=== PATIENT | male | born 1945 | race Caucasian/White ===

== ENCOUNTER → 2023-06-29 09:51 | Outpatient (CLI) | payer MEDICARE, SELFPAY ==
--- NOTE | 2023-06-29 | DI.NM.S_ITS ---
PROCEDURE: NM PARATHYROID SPECT RADIOPHARMACEUTICAL: 27.4 mCi Tc-99m sestamibi IV. INDICATIONS: Primary hyperparathyroidism TECHNIQUE: After intravenous administration of Tc-99m sestamibi, anterior planar images of the neck and mediastinum were obtained at approximately 10 minutes and 2-3 hours. SPECT images were acquired after the 10 minute planar images. COMPARISON: None. FINDINGS: On the early images, the thyroid gland is bilobed and has normal size and morphology. There is no focal increased activity in the thyroid bed. The delayed images show preferential tracer retention in the thyroid bed to suggest parathyroid adenoma. The SPECT images demonstrate no abnormal activity in the neck. IMPRESSION: Retained delayed tracer in the left thyroid. Parathyroid cannot be excluded. Recommend correlation with ultrasound as well as PI-RADS thyroid CT exam. Dictated by: Arpita Waters M.D. on 06/29/2023 at 22:26 Approved by: Arpita Waters M.D. on 06/29/2023 at 22:28
== END ==
PROVIDERS: PCP Family Medicine; Referring Provider Family Medicine; Visit Provider Family Medicine
DX: E21.0 Primary hyperparathyroidism (principal)
CPT/HCPCS: 78071; A9500

== ENCOUNTER → 2023-08-04 08:35 | Outpatient (CLI) | payer MEDICARE, SELFPAY ==
--- NOTE | 2023-08-04 | DI.CT.S_ITS ---
PROCEDURE: CT SOFT TISSUE NECK WO/W CON INDICATIONS: Primary hyperparathyroidism TECHNIQUE: Before and after the administration of intravenous contrast, 2.0 mm axial sections acquired through the neck and down to the jim. Additional 2.0 mm coronal and sagittal reformats were generated of the contrast enhanced images. For radiation dose reduction, the following was used: automated exposure control. COMPARISON: [place], [place], CT PARATHYROID SPECT, 06/29/2023, 10:33. FINDINGS: Image quality: Excellent. Parathyroid: Posterior to the superior pole of the left thyroid, there is a soft tissue mass that measures 2.4 x 1.6 cm in greatest axial dimension, with a craniocaudal extent of 2.6 cm. On precontrast imaging, this is clearly hypodense to the adjacent normal thyroid tissue. On postcontrast imaging, there is moderate enhancement, slightly less than the adjacent thyroid gland. On the delayed images, there is washout of contrast seen. No additional parathyroid abnormalities are seen. Thyroid: No significant abnormality of the thyroid gland can be seen. Lymph nodes: No enlarged lymph nodes seen throughout the neck. Vessels: Visualized vasculature appears patent. Neck spaces: The oropharynx, nasopharynx, and pharynx demonstrate no mucosal lesions. The vocal cords, false vocal cords, pyriform sinuses, epiglottis, vallecula, and tongue base all appear normal. Extramucosal spaces appear unremarkable. Glands: The parotid and submandibular glands appear normal. Miscellaneous: Visualized lungs appear clear. Superficial soft tissues appear normal. Bones: No suspicious bony lesions. Visualized sinuses and mastoids appear unremarkable. At least moderate cervical spine degenerative change can be seen. 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 No additional masses are detected. No suspicious lymph nodes are seen. Additional findings: At least moderate cervical spine degenerative change Dictated by: José Luis Vera M.D. on 08/04/2023 at 15:38 Approved by: José Luis Vera M.D. on 08/04/2023 at 15:41
[2023-08-04 09:02] LABS: Estimated Glomerular Filt Rate > 60 mL/min (>60)
== END ==
LOC: CT 08:36
PROVIDERS: Specialist; PCP Family Medicine; Referring Provider Family Medicine; Visit Provider Family Medicine
DX: M47.812 Spondylosis without myelopathy or radiculopathy, cervical region (principal); E83.52 Hypercalcemia; D35.1 Benign neoplasm of parathyroid gland; R22.1 Localized swelling, mass and lump, neck
CPT/HCPCS: 36415; 70492; 82565; Q9967

== ENCOUNTER → 2023-09-16 08:35 | Outpatient (CLI) | payer MEDICARE, SELFPAY ==
[2023-09-16 09:19] LABS: BUN Creatinine Ratio 23.3 (6-22); Blood Urea Nitrogen 24 mg/dL (9-20); Calcium 11.3 mg/dL (8.4-10.2); Carbon Dioxide 27 mmol/L (22-32); Chloride 106 mmol/L (98-107); Estimated Glomerular Filt Rate > 60 mL/min (>60); Glucose 102 mg/dL (80-110); HEMOLYSIS < 15 (0-50); Potassium 5.3 mmol/L (3.4-5.1); Sodium 140 mmol/L (137-145)
[2023-09-20 06:36] LABS: Calcium 11.3 mg/dL (8.6-10.2); Parathyroid Hormone, Intact 138 pg/mL (15-65)
== END ==
PROVIDERS: PCP Family Medicine; Referring Provider Surgery; Visit Provider Surgery
DX: E83.52 Hypercalcemia (principal); D35.1 Benign neoplasm of parathyroid gland
CPT/HCPCS: 36415; 80048; 82310; 83970

== ENCOUNTER 2023-09-23 23:31 | Observation (INO) | payer MEDICARE, SELFPAY ==
[2023-09-21 13:35] VITALS: BMI 25.4
--- NOTE | 2023-09-22 19:40 | PM.PREOP ---
Pre-operative Note Interval Note History & Physical reviewed/Exam performed by Physician: Yes Changes to H&P: No
[2023-09-23] VITALS (22 sets, daily range): BP systolic 92–146; BP diastolic 52–102; PULSE 74–144; RESP 12–135; TEMP 36.4–37; O2SAT 94–99; BMI 25.4
--- NOTE | 2023-09-23 | PATH_ITS ---
[facility] Accession Number: [id number] No. of containers..02 Tissue . 01 Material submitted: . PART A: parathyroid gland - PARATHYROID PART B: thyroid gland - PARTIAL THYROID . 01 Diagnosis: A. PARATHYROID: Adipose tissue and skeletal muscle. Parathyroid tissue not present. . B. PARTIAL THYROID: Enlarged/hypercellular parathyroid lesion (see comment). Final diagnosis pending outside consultation with Dr. Archie Liao, ([facility], [place], [place]). MRV 09/29/2023 1837 Local . 01 Comment: The parathyroid tissue identified in specimen B is circumscribed and partially encapsulated, and composed of a mixture of sheets, trabeculae, and microfollicles, predominanted by chief cells with smaller nodules of oxyphil cells. The lesiona is adherent to a scant amount of adjacent thyroid tissue. Dense, hyalinized fibrous bands are present throughout, as well as hemosiderin pigment and cholesterol clefts. The lesion does not appear transected, but extends to inked margin. Invasion into soft tissue or thyroid gland is not present. Lymphovascular invasion is not identified. Necrosis or increased mitotic activity are not seen. A limited panel of immunostains is obtained on block B2, with the controls stained appropriately. The tumor shows uniform expression with GATA3 and is negative with PAX8, confirming parathyroid origin (and excluding thyroid origin). . This parathyroid lesion is compatible with an adenoma; however, requires correlation with the remainder of the parathyroid glands. Additionally, this presumed adenoma shows some findings which can be identified in an atypical parathyroid tumor, namely the fibrous bands and adherence to thyroid. Definitive features of a parathyroid carcinoma are not seen. At this juncture, we are electing to send this case for consultation to Dr. Archie Liao of [facility] ([place], [place]), with the final diagnosis and results of his consultation reported as an addendum. . * This test was developed and its performance characteristics determined by [employer]. It has not been cleared or approved by the U.S. Food and Drug Administration. The FDA has determined that such clearance or approval is not necessary. This test is used for clinical purposes. It should not be regarded as investigational or for research. . 01 Electronically signed: . Alexandra Howard MD, Pathologist NPI- [id number] . 01 Gross description: . A. Received in formalin labeled with the patient's name, , and parathyroid, consists of a less than 0.1 grams fragment of pink-paz soft tissue measuring 0.6 x 0.6 x 0.2 cm. The external surface is inked blue. The tissue is bisected and entirely submitted in cassette A1. B. Received in formalin, labeled with the patient's name, , and partial thyroid, consists of a 4 gram unoriented hemithyroidectomy specimen measuring 2.4 x 2.0 x 1.4 cm. The capsular surface is paz brown and ragged. No definitive lymph node tissue or parathyroid is seen. The presumed anterior surface is inked blue, the posterior surface inked black, and the presumed isthmus inked orange. The tissue is serially sectioned into nine slices to reveal, located in slices 4-9, a white firm ill-defined nodule measuring 2.0 x 1.3 x 0.6 cm. The nodule abuts the anterior surface and is located 0.2 cm from the posterior and 0.1 cm from the isthmus. The remaining parenchyma shows paz-brown colloidal cut surfaces with further abnormalities seen. The tissue is entirely submitted as follows: B1: Slice 1, radially sectioned. B2: Slices 2-3. B3: Slices 4-5. B4: Slice 6-7. B5: Slice 8. B6: Slice 9, radially sectioned. ([id number]) /MRV 09/27/20235 Local . 01 Pathologist provided ICD-10: D35.1 . 01 CPT . 496425, 672222, J26010, [id number] Specimen Comment: A courtesy copy of this report has been sent to [phone] Performed at: 01 [facility] [address], [place], [place] [id number] MD Mic Hussein MD Phone: [phone]
[2023-09-23] MEDS: LACTATED RINGERS 1,000 ML 21 ML IV (12:01)
--- NOTE | 2023-09-23 12:55 | SUR.OPER ---
Supine on padded OR bed, head on pillow, arms padded and tucked at sides, legs uncrossed, safety belt at thigh, tape over blanket over lower legs .
[2023-09-23] MEDS: ACETAMINOPHEN 325 MG TABLET 975 MG PO (13:01)
[2023-09-23] MEDS: CEFAZOLIN 2 GM/100 ML PREMIX 100 ML IV (13:45)
[2023-09-23] MEDS: BUPIVACAINE 0.25% (PF) VIAL 30 ML INJ (13:54)
[2023-09-23] MEDS: LACTATED RINGERS 1,000 ML 42 ML IV (14:23)
--- NOTE | 2023-09-23 15:42 | P.OP_ITS ---
Operative Date/Time/Diagnoses Date of procedure: 09/23/23 Time of procedure: 17:01 Pre-op diagnosis: Hyperparathyroidism Post-op diagnosis: same Procedure & Clinicians Procedure: Parathyroidectomy Partial left hemithyroidectomy Same procedure as scheduled: Yes Indications: 78-year-old man with a diagnosis of primary hyperparathyroidism found to have a enlarged left superior parathyroid adenoma here for elective parathyroidectomy. Surgeon: Shadi Hernandez Loading Machine Tool Setter: Alexandra Romano Anesthesia Type: General Operative Notes Findings: Enlarged left superior parathyroid. Possible intra thyroid parathyroid adenoma Specimen(s): other (Parathyroid, left partial thyroid) Estimated Blood Loss (mL): 20 Procedure in detail: Patient was brought to the operating room placed supine on the table. Bilateral lower extremity compression devices were applied. General anesthesia was induced he was intubated with an endotracheal tube. He is had prepped and draped in sterile fashion time-out was performed. A curvilinear 4 cm collar incision was made. The platysma was divided and then subplatysmal flaps were developed in all directions. The midline raphe was divided and the strap muscles were mobilized laterally. We turned our attention to the left superior lobe of the thyroid. The gland was mobilized from lateral to medial. A parathyroid gland superior and posterior to the left pole of the thyroid was identified and dissected out passed off the field as specimen. The architecture of the left superior pole of the thyroid was abnormally firm and irregular with some brownish discoloration. The left superior pole of the thyroid was resected given its abnormal appearance and concerned that it may well contained an intra thyroidal parathyroid adenoma. The superior pole vessels were divided between silk ties close to the thyroid capsule. The recurrent laryngeal nerve was identified within the tracheoesophageal groove and was kept posterior out of harm's way. Hemostasis was achieved. The wound was irrigated a Valsalva maneuver performed there were no overt signs of bleeding. Sheet of Surgicel was placed over the area of the left thyroid lobe. The midline was closed with running Vicryl suture. The platysma was reapproximated using Vicryl suture and the skin closed with 4-0 Monocryl followed by the application of Dermabond. He tolerated the procedure well was extubated and transferred to recovery in in good condition. Complications: none Post-operative Condition: stable Disposition: observation
--- NOTE | 2023-09-23 16:27 | PM.PN.1 ---
Exam Vital Signs (past 8 hours): - 09/23/23 11:42 09/23/23 15:42 09/23/23 15:44 Temperature 97.8 F 97.7 F Pulse Rate 82 102 H 74 Respiratory Rate 16 12 12 Blood Pressure 129/82 106/64 103/75 Pulse Oximetry 99 95 98 Oxygen Delivery Method Room Air Simple Mask Room Air Oxygen Flow Rate 5 09/23/23 15:47 09/23/23 15:56 Temperatu Pulse Rate 98 H 115 H Respiratory Rate 13 12 Blood Pressure 125/99 H 146/93 H Pulse Oxitry 96 96 Oxygen Delivery Method Room Air Room Air Oxygen Flow Rate Oxygen Delivery Method Room Air Oxygen Flow Rate 5 PFSH Medical History (Updated 09/21/23 @ 13:42 by Bre Carranza RN) Hypothyroidism Elevated cholesterol Hypercalcemia Skin cancer Bladder stone Enlarged prostate Afib Surgical History (Updated 09/21/23 @ 13:44 by Bre Carranza RN) History of surgery (03/2022) History of bladder surgery (06/2023) Hx of tonsillectomy H/O vasectomy Hx of right knee surgery H/O removal of cyst Family History Mother Heart disease Diabetes mellitus Father Diabetes mellitus Stroke Cerebral hemorrhage Social History marital status: household members: spouse lives independently: Yes occupational status: previously employed Smoking Status: Never smoker alcohol intake: former substance use type: does not use
--- NOTE | 2023-09-23 16:41 | P.CONS_ITS ---
History of Present Illness Consult details Chief complaint: Left Thyroidectomy Meds Home Medications and Allergies Home Medications Medication Instructions Recorded Confirmed Type Prostadine PO 08/25/23 History apixaban 5 mg tablet (Eliquis) 5 mg PO BID 08/25/23 09/23/23 History ascorbate calcium (vitamin C) 500 500 mg PO DAILY 08/25/23 09/23/23 History mg tablet cholecalciferol (vitamin D3) 25 25 mcg PO DAILY 08/25/23 09/23/23 History mcg (1,000 unit) capsule lisinopril 5 mg tablet 5 mg PO DAILY 08/25/23 09/23/23 History metoprolol succinate 50 mg 75 mg PO DAILY 08/25/23 09/23/23 History tablet,extended release 24 hr (Toprol XL) tamsulosin 0.4 mg capsule (Flomax) 0.4 mg PO DAILY 08/25/23 08/25/23 History acetaminophen 325 mg capsule 650 mg (2 x 325 mg) PO QID PRN 09/23/23 Rx (Tylenol) pain #60 caps tramadol 50 mg tablet 50 mg PO Q6H PRN pain #15 tabs 09/23/23 Rx Allergies Allergy/AdvReac Type Severity Reaction Status Date / Time iodine Allergy Verified 09/23/23 11:33 Exam Vital Signs (past 8 hours): - 09/23/23 11:42 09/23/23 15:42 09/23/23 15:44 Temperature 97.8 F 97.7 F Pulse Rate 82 129 H 144 H Respiratory Rate 16 12 12 Blood Pressure 129/82 106/64 103/75 Pulse Oximetry 99 95 98 Oxygen Delivery Method Room Air Simple Mask Room Air Oxygen Flow Rate 5 09/23/23 15:47 09/23/23 15:56 09/23/23 16:16 Temperature Pulse Rate 134 H 132 H 144 H Respiratory Rate 13 12 135 H Blood Pressure 125/99 H 146/93 H 128/97 H Pulse Oximetry 96 96 96 Oxygen Delivery Method Room Air Room Air Room Air Oxygen Flow Rate 09/23/23 16:31 Temperature Pulse Rate 129 H Respiratory Rate 15 Blood Pressure 115/78 Pulse Oximetry 95 Oxygen Delivery Method Room Air Oxygen Flow Rate Oxygen Delivery Method Room Air Oxygen Flow Rate 5 Objective ECG Impression: 12 lead ordered. AF with RVR. [facility] Medical History (Updated 09/21/23 @ 13:42 by Bre Carranza RN) Hypothyroidism Elevated cholesterol Hypercalcemia Skin cancer Bladder stone Enlarged prostate Afib Surgical History (Updated 09/21/23 @ 13:44 by Bre Carranza RN) History of surgery (03/2022) History of bladder surgery (06/2023) Hx of tonsillectomy H/O vasectomy Hx of right knee surgery H/O removal of cyst Family History Mother Heart disease Diabetes mellitus Father Diabetes mellitus Stroke Cerebral hemorrhage Social History marital status: household members: spouse lives independently: Yes occupational status: previously employed Tobacco & Substance Use Smoking Status: Never smoker alcohol intake: former substance use type: does not use Assessment & Plan Assessment & Plan narrative: called to PACU by RN. pt HR 115-147 AF RVR. order placed for 12 lead ekg. pt states urge to void. bladder scanner shows 500-600 mL. rn straight cath patient at bedside. immediately return of pineda BRB. approx [address] anderson to inform at 1613. at 1615 called hospitalist. hospitalist telephone orders for IV metopolol [address] bueno with irrigation. metoprolol 2.5 mg IVP at [address] mireles at bedside at 1625. pt will be admitted to hospitalist service for observation.
--- NOTE | 2023-09-23 18:03 | P.CONS_ITS ---
History of Present Illness Consult details Date Patient Seen: 09/23/23 Time Patient Seen: 18:08 Chief complaint: Left Thyroidectomy Reason for consult: Atrial fibrillation with tachycardia and hematuria. Narrative: The patient is a pleasant 78-year-old male who is status post a parathyroidectomy. The patient presented to the PACU with atrial fibrillation with rapid response with a heart rate in the 140s as well as pineda hematuria. He has a history of bladder stones in his followed by Urology at [facility]. The patient was taking Eliquis and this was held for 2 days prior to surgery. He denies any history of hematuria other than with catheter trauma. He apparently self catheterization on a regular basis 3 times a day. He is chronic atrial fibrillation is followed by Cardiology. The patient denies any chest pain or palpitations in the PACU. He does take metoprolol chronically. He was given several doses of IV metoprolol and esmolol in the operating room. He is normal blood pressure and denies any feeling of diaphoresis, or nausea. He also denies any suprapubic tenderness. A 3 way catheter was placed in the PACU and continuous bladder irrigation was started. He denies any abdominal pain. Meds Home Medications and Allergies Home Medications Medication Instructions Recorded Confirmed Type Prostadine PO 08/25/23 History apixaban 5 mg tablet (Eliquis) 5 mg PO BID 08/25/23 09/23/23 History ascorbate calcium (vitamin C) 500 500 mg PO DAILY 08/25/23 09/23/23 History mg tablet cholecalciferol (vitamin D3) 25 25 mcg PO DAILY 08/25/23 09/23/23 History mcg (1,000 unit) capsule lisinopril 5 mg tablet 5 mg PO DAILY 08/25/23 09/23/23 History metoprolol succinate 50 mg 75 mg PO DAILY 08/25/23 09/23/23 History tablet,extended release 24 hr (Toprol XL) tamsulosin 0.4 mg capsule (Flomax) 0.4 mg PO DAILY 08/25/23 08/25/23 History acetaminophen 325 mg capsule 650 mg (2 x 325 mg) PO QID PRN 09/23/23 Rx (Tylenol) pain #60 caps tramadol 50 mg tablet 50 mg PO Q6H PRN pain #15 tabs 09/23/23 Rx Allergies Allergy/AdvReac Type Severity Reaction Status Date / Time iodine Allergy Verified 09/23/23 11:33 Review of Systems Review of Systems Narrative: All else reviewed and otherwise unremarkable except as noted in history and physical. Exam Vital Signs (past 8 hours): - 09/23/23 11:42 09/23/23 15:42 09/23/23 15:44 Temperature 97.8 F 97.7 F Pulse Rate 82 129 H 74 Respiratory Rate 16 12 12 Blood Pressure 129/82 106/64 103/75 Pulse Oximetry 99 95 98 Oxygen Delivery Method Room Air Simple Mask Room Air Oxygen Flow Rate 5 09/23/23 15:47 09/23/23 15:56 09/23/23 16:16 Temperature Pulse Rate 134 H 132 H 144 H Respiratory Rate 13 12 135 H Blood Pressure 125/99 H 146/93 H 128/97 H Pulse Oximetry 96 96 96 Oxygen Delivery Method Room Air Room Air Room Air Oxygen Flow Rate 09/23/23 16:31 09/23/23 16:37 09/23/23 16:42 Temperature Pulse Rate 129 H 104 H 108 H Respiratory Rate 15 12 14 Blood Pressure 115/78 109/81 116/82 Pulse Oximetry 95 96 94 Oxygen Delivery Method Room Air Room Air Room Air Oxygen Flow Rate 09/23/23 16:50 09/23/23 17:06 Temperature Pulse Rate 112 H 127 H Respiratory Rate 14 14 Blood Pressure 116/92 H 132/102 H Pulse Oximetry 94 Oxygen Delivery Method Room Air Room Air Oxygen Flow Rate Oxygen Delivery Method Room Air Oxygen Flow Rate 5 Narrative Exam Narrative: NAD, fluent speech. Calm. is in the room. Normocephalic skull, EOMI, anicteric sclera. Neck is supple, he is incisional wound which is unremarkable, no bruising, swelling or bleeding. Lungs are clear with normal rate and effort. Heart is irregular without murmur, and tachycardic. Abdomen is soft, nontender. A catheter is in place with pineda hematuria. There is no leg edema. Joints are not swollen or deformed. No skin rash or lesions. [facility] Medical History Hypothyroidism Elevated cholesterol Hypercalcemia Skin cancer Bladder stone Enlarged prostate Afib Surgical History History of surgery (03/2022) History of bladder surgery (06/2023) Hx of tonsillectomy H/O vasectomy Hx of right knee surgery H/O removal of cyst Family History Mother Heart disease Diabetes mellitus Father Diabetes mellitus Stroke Cerebral hemorrhage Social History marital status: household members: spouse lives independently: Yes occupational status: previously employed Tobacco & Substance Use Smoking Status: Never smoker alcohol intake: former substance use type: does not use Assessment & Plan Assessment & Plan narrative: 1. Atrial fibrillation with rapid response, and a relative hypotension after transfer to the CCU. Present on admission and active. 2. Pineda hematuria inpatient who takes Eliquis and did hold this for 2 days prior to his surgery today. 3. Status post parathyroidectomy, stable. Plan: -admit to the ICU. -observation status.- -hold anticoagulation. -continuous bladder irrigation until urine clears. -given his relative hypotension we will give him a saline bolus and use an amiodarone bolus and infusion for rate control. He is full resuscitation, confirmed time of consultation. His is his proxy decision maker. Time Spent With Patient Time with patient: 30 to 49 minutes with 50% spent counseling/coordinating care
[2023-09-23] MEDS: ACETAMINOPHEN 325 MG TABLET 650 MG PO (18:29)
[2023-09-23] MEDS: SODIUM CHLORIDE 0.9% 1,000 ML 1000 ML IV (18:30)
[2023-09-23] MEDS: AMIODARONE 150 MG/100 ML 600 MG IV (18:33)
[2023-09-23] MEDS: AMIODARONE 360 MG/200 ML PIGGYBACK 33.33 MG IV (18:43)
[2023-09-23] MEDS: SODIUM CHLORIDE 0.9% 1,000 ML 100 ML IV (18:45)
[2023-09-23 19:13] LABS: MRSA (Nasal) PCR Not Detected (Not Detect)
--- NOTE | 2023-09-23 19:30 | PC.NURSE ---
Addendum entered by Ambar Mendieta R.N. 09/23/23 19:33: Amendment: CBI/catheter initiated in OR, CBI continued in ICU by RN. Original Note: Admit note: Pt arrived to floor in Afib RVR rates 120s-150s asymptomatic, BP MAP 70s-80s, provider notified. CBI initiated. Pt tolerating neck pain from surgery with ice, position, PRN pain meds.
[2023-09-23 22:00] LABS: Hematocrit 31.9 % (41-53); Hemoglobin 10.8 g/dL (13.5-17.5)
[2023-09-23] MEDS: OXYCODONE IR 5 MG TABLET PO (22:59)
[2023-09-24] VITALS (36 sets, daily range): BP systolic 99–135; BP diastolic 67–92; PULSE 98–147; RESP 13–33; TEMP 37.1; O2SAT 94–99
[2023-09-24] MEDS: AMIODARONE 360 MG/200 ML PIGGYBACK 16.7 MG IV (00:15)
[2023-09-24 00:18] LABS: Creatine Kinase 151 U/L (55-170)
[2023-09-24 00:30] LABS: Troponin I < 0.012 ng/mL (0.01-0.034)
[2023-09-24] MEDS: LIDOCAINE 2% (GLYDO) 6 ML GEL TOP ×4 (03:20→06:25)
[2023-09-24] MEDS: SODIUM CHLORIDE 0.9% 1,000 ML 100 ML IV (04:29)
--- NOTE | 2023-09-24 05:41 | PM.CN ---
History of Present Illness Consult details Date Patient Seen: 09/24/23 Time Patient Seen: 04:30 Chief complaint: Left Thyroidectomy Reason for consult: Unable to replace Turpin Requesting provider: Shadi Hernandez Narrative: I was called by the hospitalist who is caring for the patient in consultation requested by Dr. Hernandez. In attempting to put in the doctor's name for requesting provider it does not come up in the system and therefore Dr. Hernandez's name is entered. I was called in the early a.m. by the hospitalist regarding the inability to replace a Turpin catheter that had been removed. The patient was in the hospital today and underwent by report parathyroidectomy for a benign lesion. It is also reported that in the recovery room the patient had some cardiac difficulties with AFib; which in discussion with the patient he has had AFib for quite some time but at this time may have had a rapid ventricular response. Regardless the patient was to be admitted by the hospitalist service at the request for consultation by Dr. Hernandez to assist with the medical concerns for the patient. It was also reported that in the PACU the patient had an elevated bladder volume and was unable to void a decision was made to catheterize the patient with a straight catheter which was apparently traumatic as at that time they got bloody urine. At this point it appears the decision was made to place a three-way Turpin catheter and institute continuous bladder irrigation. This all occurring about [id number] in the afternoon and evening. Patient was eventually transferred to the intensive care unit and By report from the nursing the patient had continuous bladder irrigation running wide open and yet had quite bloody urine. The patient began to complain of testicle pain around 3:00 a.m. and was found to have a markedly elevated a mount in his bladder. This was determined to be of bladder scan. Nursing staff then called the hospitalist, who was not in the hospital but a telemedicine hospitalist, who gave an order for the catheter to be replaced. They attempted to do so with a couple of different catheters and which was not successful. The patient was bladder scanned and was somewhat uncomfortable the scan revealing a large amount in his bladder. This resulted in the call to myself. The nursing staff reported on my arrival that the patient had been able to void 150 mL of fabi colored urine and a little later another 50 mL of fabi colored urine which I was able to observe and it was fabi. In interviewing the patient he has been under the care of a urologist Dr. Lorenzana who has had him on intermittent catheterization by the patient report for quite some time patient reports he at times is able to void and that with catheterization with what he describes as a 14 Turkish coude tip catheter maybe 1 in 5 times he will be able to pass the catheter. He reports he was seen in the urologist office this last Tuesday and was able to pass the catheter and then when the nursing staff attempted to pass the catheter they had some difficulty and told him that he would have to ?just play with the catheter until he got it in?. He was not seen by Dr. Lorenzana and reports he has not been for quite some time. 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 In any regard the patient has been self catheterizing with intermittent success and has had known prostate trouble it appears for some time. The patient also reports that recently this urologist removed some bladder calculi. Procedure: Turpin catheter placement Given the patient's allergy to iodine he was prepped with Hibiclens draped in his sterile fashion. He then had 18 cc of 2% viscous lidocaine instilled within his urethra and time allowed for the block to set up. Once this was done a 24 Turkish coude tip hematuria catheter was passed easily through the urethra prostate and into the bladder. The balloon was filled with 30 cc of sterile water. Upon entering the bladder approximately 12-1300 mL of clear yellow to fabi urine was obtained. There were no clots and the patient experienced some relief. The catheter was secured with a catheter securing device. Recommendation: With the amount the patient has in the bladder I would recommend that he go home with his catheter and have a period of bladder rest. Given the amount that likely would need to be at least 2 weeks. If the patient should have return of hematuria clot this catheter should facilitate hand irrigation in that it was specifically designed for this function. Meds Home Medications and Allergies Home Medications Medication Instructions Recorded Confirmed Type Prostadine PO 08/25/23 History apixaban 5 mg tablet (Eliquis) 5 mg PO BID 08/25/23 09/23/23 History ascorbate calcium (vitamin C) 500 500 mg PO DAILY 08/25/23 09/23/23 History mg tablet cholecalciferol (vitamin D3) 25 25 mcg PO DAILY 08/25/23 09/23/23 History mcg (1,000 unit) capsule lisinopril 5 mg tablet 5 mg PO DAILY 08/25/23 09/23/23 History metoprolol succinate 50 mg 75 mg PO DAILY 08/25/23 09/23/23 History tablet,extended release 24 hr (Toprol XL) tamsulosin 0.4 mg capsule (Flomax) 0.4 mg PO DAILY 08/25/23 08/25/23 History acetaminophen 325 mg capsule 650 mg (2 x 325 mg) PO QID PRN 09/23/23 Rx (Tylenol) pain #60 caps tramadol 50 mg tablet 50 mg PO Q6H PRN pain #15 tabs 09/23/23 Rx Allergies Allergy/AdvReac Type Severity Reaction Status Date / Time iodine Allergy Verified 09/23/23 11:33 Exam Vital Signs (past 8 hours): - 09/23/23 22:00 09/23/23 22:30 09/23/23 23:00 Temperature 98.6 F Pulse Rate 95 H 102 H 117 H Respiratory Rate 16 16 25 H Blood Pressure 111/82 106/77 92/52 L Pulse Oximetry 98 98 97 Oxygen Delivery Method 09/23/23 23:31 09/23/23 23:38 09/23/23 23:38 Temperature Pulse Rate 115 H 125 H Respiratory Rate 15 31 H Blood Pressure 116/78 Pulse Oximetry 99 99 Oxygen Delivery Method 09/24/23 00:00 09/24/23 00:00 09/24/23 00:00 Temperature 98.7 F Pulse Rate 98 H Respiratory Rate 15 Blood Pressure 114/80 Pulse Oximetry 99 Oxygen Delivery Method Room Air 09/24/23 00:30 09/24/23 00:30 09/24/23 01:00 Temperature Pulse Rate 118 H Respiratory Rate 16 Blood Pressure 105/74 116/79 Pulse Oximetry 99 Oxygen Delivery Method 09/24/23 01:00 09/24/23 01:30 09/24/23 01:31 Temperature Pulse Rate 124 H 117 H Respiratory Rate 20 15 Blood Pressure 116/76 Pulse Oximetry 97 98 Oxygen Delivery Method 09/24/23 01:31 09/24/23 02:00 09/24/23 02:00 Temperature Pulse Rate 113 H 112 H Respiratory Rate 16 18 Blood Pressure 104/70 Pulse Oximetry 98 98 Oxygen Delivery Method 09/24/23 02:30 09/24/23 02:30 09/24/23 03:00 Temperature Pulse Rate 135 H Respiratory Rate 20 Blood Pressure 124/83 111/76 Pulse Oximetry 98 Oxygen Delivery Method 09/24/23 03:00 09/24/23 03:30 09/24/23 03:30 Temperature Pulse Rate 120 H 117 H Respiratory Rate 19 17 Blood Pressure 118/83 Pulse Oximetry 97 96 Oxygen Delivery Method 09/24/23 04:00 09/24/23 04:00 09/24/23 04:01 Temperature Pulse Rate 142 H Respiratory Rate 23 Blood Pressure 99/68 Pulse Oximetry Oxygen Delivery Method Room Air 09/24/23 04:01 Temperature Pulse Rate 147 H Respiratory Rate 25 H Blood Pressure Pulse Oximetry Oxygen Delivery Method Fraction of Inspired Oxygen 21 SaO2/FiO2 Ratio 471 Oxygen Delivery Method Room Air Oxygen Flow Rate 0 Narrative Exam Narrative: General: This is an awake, alert, oriented male with an incision that is well healing at the base of his neck who is lying in his hospital bed and appears minimally uncomfortable. Abdominal exam: Somewhat tender over the bladder area bladder is palpable. Genitourinary exam: Circumcised male, mildly inflamed urethral meatus, normal penis, normal testes, normal scrotum, normal epididymis and cord structures. Neurologic exam: Grossly intact Objective Labs 09/23/23 21:50 Labs: Laboratory Results - last 24 hr 09/23/23 09/23/23 09/23/23 17:25 21:50 23:45 Hgb 10.8 L Hct 31.9 L Total Creatine Kinase 151 Troponin I < 0.012 Nasal Screen MRSA (PCR) Not detected [facility] Medical History (Updated 09/24/23 @ 06:09 by Travsi Stewart MD) History of bladder stone Gross hematuria Difficult Turpin catheter placement Complication of Turpin catheter Benign prostatic hyperplasia Turpin catheter problem Urine retention Hypothyroidism Elevated cholesterol Hypercalcemia Skin cancer Bladder stone Enlarged prostate Afib Surgical History History of surgery (03/2022) History of bladder surgery (06/2023) Hx of tonsillectomy H/O vasectomy Hx of right knee surgery H/O removal of cyst Family History Mother Heart disease Diabetes mellitus Father Diabetes mellitus Stroke Cerebral hemorrhage Social History marital status: household members: spouse lives independently: Yes occupational status: previously employed Tobacco & Substance Use Smoking Status: Former smoker alcohol intake: former substance use type: does not use Assessment & Plan Assessment and plan (1) Urine retention: Status: Acute (2) Turpin catheter problem: Qualifiers: Encounter type: initial encounter Qualified Code(s): T83.9XXA - Unspecified complication of genitourinary prosthetic device, implant and graft, initial encounter Status: Acute (3) Benign prostatic hyperplasia: Qualifiers: Lower urinary tract symptom presence: symptoms present Lower urinary tract symptom detail: urinary retention Qualified Code(s): N40.1 - Benign prostatic hyperplasia with lower urinary tract symptoms; R33.8 - Other retention of urine Status: Acute (4) Complication of Turpin catheter: Qualifiers: Encounter type: initial encounter Qualified Code(s): T83.9XXA - Unspecified complication of genitourinary prosthetic device, implant and graft, initial encounter Status: Acute (5) Difficult Turpin catheter placement: Status: Acute (6) Gross hematuria: Status: Acute (7) History of bladder stone: Status: Acute Plan Assessment and plan: 1. Urinary retention perhaps longstanding perhaps related to a hypotonic bladder this remains to be seen. Patient's certainly has benign prostatic hyperplasia which has likely resulted in the difficulties with catheterization. At this point he has a catheter and given the amount in his bladder at the time of catheterization I would recommend a period of bladder rest. Specifically that the patient be discharged to home with the Turpin catheter. 2. Traumatic catheterization resulting in gross hematuria: This was likely from malplacement of the Turpin catheter in the prostate fossa. (Specifically the three-way Turpin catheter) this likely resulted in the persistent gross hematuria that has been described. It is possible there other causes but this would seem to be the most likely explanation given the clear urine that was obtained with the placement of this current catheter. The patient is now draining clear yellow urine and if hematuria should return hand irrigation with sterile water should be performed. At this point I see no need for continuing continuous bladder irrigation. 3. he will need follow-up with Urology in approximately 2 weeks after discharge unless extenuating circumstances occur. Note total time: Approximately 2 hours, interviewing the patient performing patient care, educating nursing, coordinating care, documentation. Arriving at the hospital at 4:30 a.m. and departing at 6:30 a.m.
--- NOTE | 2023-09-24 06:39 | PC.NURSE ---
Patient not restful throughout the night. AOx4, VSS, Afib 80-130s, Afebrile, tolerating RA. Amiodarone gtt running per order/protocol. Ambulates well without with stand-by assist. +1 edema to BLE/ankles, patient complained of swelling in hands, no swelling appreciated by nurse. Lungs clear to auscultation. Tolerated swallowing pills fine with water. PIV x2 intact, NS and Amiodarone running per order. Reports having tolerable pain with PRN medication. 2330- Patient complained of 5/[address] Thompson notified. STAT EKG and Trop ordered. No change noted to EKG from previous and Trop negative. 0300- Patients 3way catheter running CBI intact, Bright red drainage noted. Patient complained of scrotal pain, RN to bedside to assess, noticed bladder distention. Bladder scan for >950. CBI stopped. Nurse attempted to manually irrigate, unsuccessful. Dr. Thompson notified 0307. Verbal order to replace catheter. 3-way catheter removed, Urojet x1 administered, RN attempted to replace catheter and was unsuccessful. 0352-Dr. Thompson notified. Urology Dr. Stewart consulted. 0445-Dr. Stewart to bedside 0517- Urojet x3 given. 0520-24g Coude/Hematuria catheter inserted by Dr. Stewart (Urology) 0526- 1100mL clear yellow urine emptied. Patient tolerated well. Dr. Thompson updated.
[2023-09-24 07:41] LABS: Add Manual Diff / Slide Review NO; Basophils Absolute Auto 0 /uL (0-100); Basophils Percent Auto 0.2 % (0-2); Eosinophils Absolute Auto 0 /uL (0-450); Hematocrit 26.3 % (41-53); Hemoglobin 8.9 g/dL (13.5-17.5); Lymphocytes Absolute Auto 700 /uL (1100-4500); Lymphocytes Percent Auto 7.8 % (25-40); Mean Corpuscular HGB Conc 33.9 % (30-36); Mean Corpuscular Hemoglobin 33.6 PG (26-34); Mean Corpuscular Volume 99.1 fL (80-100); Monocytes Absolute Auto 700 /uL (0-900); Monocytes Percent Auto 8.1 % (3-14); Neutrophils Absolute Auto 7300 /uL (1500-7000); Neutrophils Percent Auto 83.9 % (50-75); Platelet Count 111 X10^3/uL (150-400); Red Blood Cell Count 2.65 X10^6/uL (4.5-5.9); Red Cell Distribution Width 13.5 % (11.6-14.8); White Blood Cell Count 8.7 X10^3/uL (4.5-11.0)
[2023-09-24 07:56] LABS: Alanine Aminotransferase 25 IU/L (<50); Albumin 2.6 g/dL (3.5-5.0); Albumin Globulin Ratio 1.1 (1.0-2.8); Alkaline Phosphatase 66 U/L (38-126); Aspartate Aminotransferase 28 IU/L (17-59); BUN Creatinine Ratio 27.1 (6-22); Bilirubin Total 0.9 mg/dL (0.2-1.3); Blood Urea Nitrogen 23 mg/dL (9-20); Calcium 7.4 mg/dL (8.4-10.2); Carbon Dioxide 22 mmol/L (22-32); Chloride 109 mmol/L (98-107); Estimated Glomerular Filt Rate > 60 mL/min (>60); Globulin 2.4 g/dL (1.7-4.1); Glucose 136 mg/dL (80-110); HEMOLYSIS < 15 (0-50); Sodium 134 mmol/L (137-145)
--- NOTE | 2023-09-24 08:13 | P.PN_ITS ---
Subjective Subjective Interval history: Had urine retention and persistent hematuria. Bladder ultrasound revealed a full bladder and Dr. Stewart was able to come in and place a catheter with the result of a clear urine drainage. He felt that the previous catheter was malpositioned. He recommends home with a catheter in 2 weeks follow up. The patient feels much better, denies any neck pain or shortness a breath. His heart rate is 130. He notes that he is going to switch from his previous urologist to Dr. Stewart. Exam Vital Signs (past 8 hours): - 09/24/23 00:30 09/24/23 00:30 09/24/23 01:00 Pulse Rate 118 H Respiratory Rate 16 Blood Pressure 105/74 116/79 Pulse Oximetry 99 Oxygen Delivery Method 09/24/23 01:00 09/24/23 01:30 09/24/23 01:31 Pulse Rate 124 H 117 H Respiratory Rate 20 15 Blood Pressure 116/76 Pulse Oximetry 97 98 Oxygen Delivery Method 09/24/23 01:31 09/24/23 02:00 09/24/23 02:00 Pulse Rate 113 H 112 H Respiratory Rate 16 18 Blood Pressure 104/70 Pulse Oximetry 98 98 Oxygen Delivery Method 09/24/23 02:30 09/24/23 02:30 09/24/23 03:00 Pulse Rate 135 H Respiratory Rate 20 Blood Pressure 124/83 111/76 Pulse Oximetry 98 Oxygen Delivery Method 09/24/23 03:00 09/24/23 03:30 09/24/23 03:30 Pulse Rate 120 H 117 H Respiratory Rate 19 17 Blood Pressure 118/83 Pulse Oximetry 97 96 Oxygen Delivery Method 09/24/23 04:00 09/24/23 04:00 09/24/23 04:01 Pulse Rate 142 H Respiratory Rate 23 Blood Pressure 99/68 Pulse Oximetry Oxygen Delivery Method Room Air 09/24/23 04:01 09/24/23 04:30 09/24/23 04:30 Pulse Rate 147 H 103 H Respiratory Rate 25 H 21 Blood Pressure 105/76 Pulse Oximetry 96 Oxygen Delivery Method 09/24/23 05:00 09/24/23 05:01 09/24/23 05:01 Pulse Rate 145 H 136 H Respiratory Rate 24 24 Blood Pressure 106/91 H Pulse Oximetry 96 94 Oxygen Delivery Method 09/24/23 05:30 09/24/23 05:30 09/24/23 06:00 Pulse Rate 137 H Respiratory Rate 31 H Blood Pressure 114/69 117/68 Pulse Oximetry 97 Oxygen Delivery Method 09/24/23 06:00 09/24/23 06:30 09/24/23 06:30 Pulse Rate 112 H 108 H Respiratory Rate 18 16 Blood Pressure 109/75 Pulse Oximetry 98 98 Oxygen Delivery Method 09/24/23 07:00 09/24/23 07:00 09/24/23 07:00 Pulse Rate 137 H 133 H Respiratory Rate 17 20 Blood Pressure 117/67 117/81 Pulse Oximetry 98 98 Oxygen Delivery Method 09/24/23 07:30 09/24/23 07:30 09/24/23 08:00 Pulse Rate 125 H Respiratory Rate 17 Blood Pressure 117/67 112/77 Pulse Oximetry 98 Oxygen Delivery Method 09/24/23 08:00 Pulse Rate 109 H Respiratory Rate 16 Blood Pressure Pulse Oximetry 98 Oxygen Delivery Method Fraction of Inspired Oxygen 21 SaO2/FiO2 Ratio 471 Oxygen Delivery Method Room Air Oxygen Flow Rate 0 Narrative Exam Narrative: NAD, lungs are clear with normal rate and effort. Heart is irregular and rapid at 125. Abdomen is soft, nontender. Extremities are free of edema. Turpin with clear urine. Objective Labs 09/24/23 07:02 09/24/23 07:02 Labs: Laboratory Results - last 24 hr 09/23/23 09/23/23 09/23/23 17:25 21:50 23:45 WBC RBC Hgb 10.8 L Hct 31.9 L MCV MCH MCHC RDW Plt Count Neut % (Auto) Lymph % (Auto) [place] % (Auto) Eos % (Auto) Baso % (Auto) Neut # (Auto) Lymph # (Auto) [place] # (Auto) Eos # (Auto) Baso # (Auto) Sodium Potassium Chloride Carbon Dioxide BUN Creatinine Estimated GFR BUN/Creatinine Ratio Glucose Calcium Total Bilirubin AST ALT Alkaline Phosphatase Total Creatine Kinase 151 Troponin I < 0.012 Total Protein Albumin Globulin Albumin/Globulin Ratio Nasal Screen MRSA (PCR) Not detected 09/24/23 07:02 WBC 8.7 RBC 2.65 L Hgb 8.9 L Hct 26.3 L MCV 99.1 MCH 33.6 MCHC 33.9 RDW 13.5 Plt Count 111 L Neut % (Auto) 83.9 H Lymph % (Auto) 7.8 L [place] % (Auto) 8.1 Eos % (Auto) 0.0 L Baso % (Auto) 0.2 Neut # (Auto) 7300 H Lymph # (Auto) 700 L [place] # (Auto) 700 Eos # (Auto) 0 Baso # (Auto) 0 Sodium 134 L Potassium 5.0 Chloride 109 H Carbon Dioxide 22 BUN 23 H Creatinine 0.85 Estimated GFR > 60 BUN/Creatinine Ratio 27.1 H Glucose 136 H Calcium 7.4 L Total Bilirubin 0.9 AST 28 ALT 25 Alkaline Phosphatase 66 Total Creatine Kinase Troponin I Total Protein 5.0 L Albumin 2.6 L Globulin 2.4 Albumin/Globulin Ratio 1.1 Nasal Screen MRSA (PCR) [facility] Medical History History of bladder stone Gross hematuria Difficult Turpin catheter placement Complication of Turpin catheter Benign prostatic hyperplasia Turpin catheter problem Urine retention Hypothyroidism Elevated cholesterol Hypercalcemia Skin cancer Bladder stone Enlarged prostate Afib Surgical History History of surgery (03/2022) History of bladder surgery (06/2023) Hx of tonsillectomy H/O vasectomy Hx of right knee surgery H/O removal of cyst Family History Mother Heart disease Diabetes mellitus Father Diabetes mellitus Stroke Cerebral hemorrhage Social History marital status: household members: spouse lives independently: Yes occupational status: previously employed Smoking Status: Former smoker alcohol intake: former substance use type: does not use Assessment & Plan Assessment & Plan narrative: 1. Atrial fibrillation with rapid response, Present on admission and active. 2. Spencer hematuria inpatient who takes Eliquis and did hold this for 2 days prior to his surgery today. 3. Status post parathyroidectomy, stable. PLAN: Dr. Stewart urology placed a catheter which resulted in clear drainage. This point we will hold his anticoagulation for an additional day and anticipate discharge home with a home catheter and a 2 week follow up with Urology, he will be seeing Dr. Stewart as he notes he really likes him. For rate control we will start metoprolol 25 long-acting this morning and wean the amiodarone drip. If he improves he can likely discharge later today. Time Spent With Patient Time with patient: 30 to 49 minutes with 50% spent counseling/coordinating care Quality VTE Deep Vein Thrombosis/Pulmonary Embolism Present on Admission: Yes
[2023-09-24] MEDS: METOPROLOL ER 50 MG TABLET 75 MG PO (08:46)
[2023-09-24] MEDS: METOPROLOL IR 25 MG TABLET PO ×2 (11:54→13:56)
--- NOTE | 2023-09-24 12:17 | CM.DANOTE ---
Patient is a 78 yo male who was admitted on 09/23/23 for Left Tyroidectomy with complications. Pt has [facility] for insurance and his PCP is Nadeem Thapa. EMR was reviewed. Per MD, pt with hx of AFIB and a few years of self cath at home for chronic bladder/prostate issues and pt was tachy post surgical intervention for thyroid lump and then had hematuria. Urology was consulted as pt had a 3 way bueno placed for continuous irrigation and pt was able to successfully have bueno placed and no blood in urine and recommendation is to d/c with bueno for 2 weeks for bladder rest. SW met bedside with pt and explained role and he confirms that he lives at home in [place] with his spouse and is active at baseline and drives and denies any recent hx of HH or SNF. Pt states he is established with Urologist Dr. Lorenzana and has [employer] at baseline as well. Pt frustrated with his years of having to self cath multiple times a day and sometimes without success. Pt states he plans to establish with Dr. Stewart at [facility] after his consultation with pt as pt feels better directed and heard by Dr. Stewart. Pt confirms his preference is to d/c home when medically stable and that spouse can likely transport and if his rate is controlled with PO meds today then plan of discharge with outpt f/u. Plan: SW to follow closely to confirm safe plan of d/c home with spouse and outpt f/u and any further identified discharge planning needs. JASEN Farmer Discharge Planning/Care Management CM Discharge Assessment Start: 09/24/23 12:11 Freq: Status: Active Protocol: Document 09/24/23 12:11 BF (Rec: 09/24/23 12:16 [id number]) Discharge Planning Assessment Assigned Pharmacy Care Coordinator JASEN Foster DPOA/Assigned Designee Name spouse Gayatri Contact Information [phone] Advance Directives? No Advance Directives on File No History Provided By Patient,Medical Record Has Patient been admitted in last 30 No days? Prior Living Arrangements House Household Members spouse Type of transporation used prior to Drives own vehicle admit Independent with ADL's Yes Is patient alert and oriented? Yes Caregiver for Another No Barriers to Discharge No Discharge Plan Home Transportation Arrangement spouse to provide transport at d/c Referrals Initiated None needed Additional Comment Pt plans to establish with Urolog[facility] Dr[facility] Whiteboard Updated in Patient Room with Yes name and ext. # of Pharmacy Care Coordinator Review Status In Process Please Provide Date Initial DC 09/24/23 Assessment Was Performed Next Review Type Continued Stay Review Pre-Anesthesia Assessment Start: 09/21/23 13:35 Freq: Status: Active Protocol: Document 09/21/23 13:35 CAB (Rec: 09/21/23 13:54 CAB [id number]) Pre-Anesthesia Assessment Seen Specialist in Last 12 Months Yes Specialist Seen [employer],General surgeon Primary Language Kuwaiti Height 187.96 cm Weight 89.811 kg Body Mass Index (BMI) 25.4 Visual Assist Contacts,Glasses Hx Anesthesia Reactions No Hx Family Anesthesia Reaction No Hx Malignant Hyperthermia No Hx Blood Transfusions No Anesthesia Review Requested No Cake Mixer No alcohol intake never Smoking Status Never smoker Patient is completely paralyzed or No completely immobile Mental Status Oriented to own ability Is patient on oxygen? No Does patient have THOMAS/SOB No Hx Sleep Apnea No Currently Taking a Beta Michelle Yes: Metoprolol Hx Chest Pain No Hx SOB No Hx Syncope or Dizziness No Anti-Coagulant Therapy Yes: Eliquis - hold 3 days per surgeon Has a Media Consultant Outside Sales Yes Media Consultant Outside Sales name Dr. Walter Cardiac Testing No Hx Pacemaker/ICD No Pacemaker Rep Required? No Bladder Pattern Frequency,Retention,Urgency Urinary Catheter Present No Hx Urinary Self Catheterization No Diabetes No Marital Status Lives With spouse Patient Discharge Plan Description Return Home
[2023-09-24] MEDS: LORazepam 0.5 MG TABLET PO (13:56)
[2023-09-24 14:19] LABS: Calcium 10.2 mg/dL (8.6-10.2); Parathyroid Hormone, Intact 25 pg/mL (15-65)
--- NOTE | 2023-09-24 14:41 | P.DS_ITS ---
History of Present Illness History of Present Illness Chief complaint: Left Thyroidectomy Narrative: he patient is a pleasant 78-year-old male who is status post a parathyroidectomy. The patient presented to the PACU with atrial fibrillation with rapid response with a heart rate in the 140s as well as pineda hematuria. He has a history of bladder stones in his followed by Urology at [facility]. The patient was taking Eliquis and this was held for 2 days prior to surgery. He denies any history of hematuria other than with catheter trauma. He apparently self catheterization on a regular basis 3 times a day. He is chronic atrial fibrillation is followed by Cardiology. The patient denies any chest pain or palpitations in the PACU. He does take metoprolol chronically. He was given several doses of IV metoprolol and esmolol in the operating room. He is normal blood pressure and denies any feeling of diaphoresis, or nausea. He also denies any suprapubic tenderness. A 3 way catheter was placed in the PACU and continuous bladder irrigation was started. He denies any abdominal pain. Discharge Providers Provider Date of admission: 09/23/23 23:31 Discharge Date: 09/24/23 Primary care physician: Nadeem Thapa MD Consults: 09/23/23 16:32 Consult to Hospitalist Service Routine Comment: Consulting Provider: Vivian Diez Reason for consultation: AF RVR, pineda BRB in bueno catheter Has provider been notified: Yes 09/23/23 17:55 Consult to Hospitalist Service Routine Comment: Consulting Provider: Travon Peraza Reason for consultation: ICU care needed Has provider been notified: Yes Dr Stewart, Urology -hematuria and urine retention. Discharge provider: Travon Peraza MD Summary Hospital Course Discharge Diagnosis: 1. Atrial fibrillation with rapid response, Present on admission and active. 2. Pineda hematuria inpatient who takes Eliquis and did hold this for 2 days prior to his surgery today. 3. Status post parathyroidectomy, stable. Hospital Course: He was admitted to the ICU with hematuria as well as AFib and RVR. He was placed on amiodarone infusion and bolus. His rate control is marginally improved. He was initially hypotensive but this did improve with IV fluids. He was started in his oral metoprolol on the morning of discharge and had better rate control. He required 2 additional doses of 25 mg. He did having hematuria postop afternoon out catheterization. A three-way catheter was placed and he was irrigated. In the middle of the night it became clear that this catheter was likely malpositioned. Dr. Taylor of Urology presented and remove this catheter in placed a new catheter which produced clear urine. He felt that the initial catheter was in the prostatic fossa. The patient was recommended to go home with a catheter in place for at least 2 weeks and follow up with Dr. Stewart. The patient does have a long history of self catheterization for urinary retention back goes back over 10 years. Status at Discharge Cognitive/behavioral status at discharge: oriented Functional status at discharge: independent ambulation Overall status at discharge: patient is back to baseline Time Spent with Patient Time spent: Greater than 30 minutes Exam Vital Signs (past 8 hours): - 09/24/23 07:00 09/24/23 07:00 09/24/23 07:00 Temperature Pulse Rate 137 H 133 H Respiratory Rate 17 20 Blood Pressure 117/67 117/81 Pulse Oximetry 98 98 Oxygen Delivery Method Oxygen Flow Rate 09/24/23 07:30 09/24/23 07:30 09/24/23 08:00 Temperature Pulse Rate 125 H Respiratory Rate 17 Blood Pressure 117/67 112/77 Pulse Oximetry 98 Oxygen Delivery Method Oxygen Flow Rate 09/24/23 08:00 09/24/23 08:30 09/24/23 08:46 Temperature Pulse Rate 109 H 109 H 127 H Respiratory Rate 16 13 Blood Pressure 114/74 Pulse Oximetry 98 98 Oxygen Delivery Method Oxygen Flow Rate 09/24/23 08:48 09/24/23 08:48 09/24/23 09:00 Temperature Pulse Rate 119 H 121 H Respiratory Rate 22 16 Blood Pressure 114/74 Pulse Oximetry 99 99 Oxygen Delivery Method Oxygen Flow Rate 09/24/23 09:20 09/24/23 09:30 09/24/23 10:00 Temperature Pulse Rate 113 H 112 H 120 H Respiratory Rate 16 17 Blood Pressure 114/72 114/70 Pulse Oximetry 98 Oxygen Delivery Method Oxygen Flow Rate 09/24/23 10:00 09/24/23 10:30 09/24/23 11:00 Temperature Pulse Rate 116 H 126 H 122 H Respiratory Rate 18 33 H 17 Blood Pressure 125/67 Pulse Oximetry Oxygen Delivery Method Oxygen Flow Rate 09/24/23 11:06 09/24/23 11:06 09/24/23 11:30 Temperature Pulse Rate 118 H 121 H Respiratory Rate 18 17 Blood Pressure 125/67 Pulse Oximetry Oxygen Delivery Method Oxygen Flow Rate 09/24/23 12:00 09/24/23 12:00 09/24/23 12:25 Temperature 98.7 F Pulse Rate 98 H 118 H Respiratory Rate 18 20 Blood Pressure 125/67 135/92 H Pulse Oximetry 97 99 Oxygen Delivery Method Room Air Oxygen Flow Rate 0 09/24/23 12:56 09/24/23 12:56 09/24/23 13:00 Temperature Pulse Rate 130 H 103 H Respiratory Rate Blood Pressure 135/92 H Pulse Oximetry 97 99 Oxygen Delivery Method Oxygen Flow Rate 09/24/23 13:30 Temperature Pulse Rate 99 H Respiratory Rate Blood Pressure Pulse Oximetry 99 Oxygen Delivery Method Oxygen Flow Rate Fraction of Inspired Oxygen 21 SaO2/FiO2 Ratio 471 Oxygen Delivery Method Room Air Oxygen Flow Rate 0 Narrative Exam Narrative: NAD, alert and oriented. Fluent speech. Lungs are clear, normal rate and effort. Heart is irregular, no murmur gallop or rub. Abdomen is soft, non distended. Extremities are free of edema. Objective ECG Impression: AF + RVR Labs 09/24/23 07:02 09/24/23 07:02 Labs: Laboratory Results - last 24 hr 09/23/23 09/23/23 09/23/23 16:40 17:25 21:50 WBC RBC Hgb 10.8 L Hct 31.9 L MCV MCH MCHC RDW Plt Count Neut % (Auto) Lymph % (Auto) Hudson % (Auto) Eos % (Auto) Baso % (Auto) Neut # (Auto) Lymph # (Auto) Hudson # (Auto) Eos # (Auto) Baso # (Auto) Sodium Potassium Chloride Carbon Dioxide BUN Creatinine Estimated GFR BUN/Creatinine Ratio Glucose Calcium Total Bilirubin AST ALT Alkaline Phosphatase Total Creatine Kinase Troponin I Total Protein Albumin Globulin Albumin/Globulin Ratio PTH Intact 25 Calcium (PTH Intact) 10.2 PTH Intact Intraop Comment Nasal Screen MRSA (PCR) Not detected 09/23/23 09/24/23 23:45 07:02 WBC 8.7 RBC 2.65 L Hgb 8.9 L Hct 26.3 L MCV 99.1 MCH 33.6 MCHC 33.9 RDW 13.5 Plt Count 111 L Neut % (Auto) 83.9 H Lymph % (Auto) 7.8 L Hudson % (Auto) 8.1 Eos % (Auto) 0.0 L Baso % (Auto) 0.2 Neut # (Auto) 7300 H Lymph # (Auto) 700 L Hudson # (Auto) 700 Eos # (Auto) 0 Baso # (Auto) 0 Sodium 134 L Potassium 5.0 Chloride 109 H Carbon Dioxide 22 BUN 23 H Creatinine 0.85 Estimated GFR > 60 BUN/Creatinine Ratio 27.1 H Glucose 136 H Calcium 7.4 L Total Bilirubin 0.9 AST 28 ALT 25 Alkaline Phosphatase 66 Total Creatine Kinase 151 Troponin I < 0.012 Total Protein 5.0 L Albumin 2.6 L Globulin 2.4 Albumin/Globulin Ratio 1.1 PTH Intact Calcium (PTH Intact) PTH Intact Intraop Nasal Screen MRSA (PCR) PFSH Medical History History of bladder stone Gross hematuria Difficult Bueno catheter placement Complication of Bueno catheter Benign prostatic hyperplasia Bueno catheter problem Urine retention Hypothyroidism Elevated cholesterol Hypercalcemia Skin cancer Bladder stone Enlarged prostate Afib Surgical History History of surgery (03/2022) History of bladder surgery (06/2023) Hx of tonsillectomy H/O vasectomy Hx of right knee surgery H/O removal of cyst Family History Mother Heart disease Diabetes mellitus Father Diabetes mellitus Stroke Cerebral hemorrhage Social History marital status: household members: spouse lives independently: Yes occupational status: previously employed Smoking Status: Former smoker alcohol intake: former substance use type: does not use Discharge Assessment & Plan Assessment and Plan Assessment: 1. Atrial fibrillation with rapid response, Present on admission and active. 2. Pineda hematuria inpatient who takes Eliquis and did hold this for 2 days prior to his surgery today. 3. Status post parathyroidectomy, stable. Plan of Treatment: He will discharge home with a leg bag. Follow up with Dr. Hernandez of surgery within the next 2 weeks as scheduled. He will follow up with Dr. Stewart and use a Bueno with leg bag until that time within the next several weeks. The patient is given postsurgical instructions by Dr. Romano with whom this case was discussed in the day of discharge. He will resume his anticoagulation on September 25 per her instructions. Discharge Plan Discharge Plan Patient Disposition: Home Provider Discharge Comment: -Okay to shower tomorrow -No strenuous for 1 week -No driving while taking narcotics -Resume Eliquis Monday 09/25 -Emergency department for neck swelling, shortness of breath or bleeding from the incision Discharge orders & Medications Prescriptions: New tramadol 50 mg tablet 50 mg PO Q6H PRN (Reason: pain) Qty: 15 0RF acetaminophen [Tylenol] 325 mg capsule 650 mg PO QID PRN (Reason: pain) Qty: 60 0RF Continued Eliquis 5 mg tablet 5 mg PO BID tamsulosin [Flomax] 0.4 mg capsule 0.4 mg PO DAILY metoprolol succinate [Toprol XL] 50 mg tablet extended release 24 hr 75 mg PO DAILY Rx Instructions: pt. takes 1 1/2 tablets daily. lisinopril 5 mg tablet 5 mg PO DAILY ascorbate calcium (vitamin C) 500 mg tablet 500 mg PO DAILY cholecalciferol (vitamin D3) 25 mcg (1,000 unit) capsule 25 mcg PO DAILY Prostadine PO Rx Instructions: 2ml daily Follow up/Referrals: Shadi Hernandez MD [Physician] - 2 Weeks Diet/Activity/Treatments Diet: Diet as Tolerated Skin/Wound/Dressing Care Report to your healthcare provider any signs of infection, such as:: chills, fever, increased pain, unusual drainage and unusual redness Visit Report/Discharge Packet Instructions: DI for Thyroidectomy, DI for Prescription Opioid Use Stand Alone Forms: Patient Portal/API, Surgery Discharge Discharge Data Primary Care Provider: Nadeem Thapa Attending Provider: Shadi Hernandez Admit Date/Time: 09/23/23 23:31 Quality VTE Deep Vein Thrombosis/Pulmonary Embolism Present on Admission: Yes
--- NOTE | 2023-09-24 16:27 | PC.NURSE ---
1530 Pt heart rate controlled to 80 with extra dose of Metoprolol. Discharge instructions given re parathyroid surg incision and detailed instructions given to the patient for care of his urinary catater at home including how to disconnect from the drainage bag and connect the leg bag maintaining sterile conditions. Explained the importance of not leaving the bag disconnected while showering. Pt demonstrated understanding for this and displayed ability to maneuver the switchover. Instructed to call urologist with any questions or problems with the supplies.
== END 2023-09-24 16:00 | disposition home or self-care (01) ==
LOC: OR 23:31 → ICU 23:31
PROVIDERS: Hospitalist; Internal Medicine; Admitting Provider Surgery; PCP Family Medicine; Referring Provider Surgery; Visit Provider Surgery
PROC: (CPT 60500; principal; 2023-09-23 13:00)
DX: D35.1 Benign neoplasm of parathyroid gland (principal); E21.0 Primary hyperparathyroidism; R33.9 Retention of urine, unspecified; T83.9XXA Unspecified complication of genitourinary prosthetic device, implant and graft, initial encounter; N40.1 Benign prostatic hyperplasia with lower urinary tract symptoms; R33.8 Other retention of urine; R31.0 Gross hematuria; Z87.448 Personal history of other diseases of urinary system; I48.91 Unspecified atrial fibrillation; R00.0 Tachycardia, unspecified; I95.81 Postprocedural hypotension
CPT/HCPCS: 60500; 36415; 80053; 82310; 82550; 82962; 83970; 84484; 85014; 85018; 85025; 87797; 93005; G0378; J0282; J0690; J1885; J2405; J2704; J3010

== ENCOUNTER 2024-11-07 07:40 | Day surgery (SDC) | payer MEDICARE, SELFPAY ==
[2024-09-25 09:15] VITALS: BMI 25.4
[2024-10-30 14:27] VITALS: BMI 26.4
[2024-11-07] VITALS (9 sets, daily range): BP systolic 80–131; BP diastolic 51–79; PULSE 78–101; RESP 12–18; TEMP 36.3–36.7; O2SAT 94–99; BMI 26.4
[2024-11-07] MEDS: LACTATED RINGERS 1,000 ML 42 ML IV (08:38)
--- NOTE | 2024-11-07 08:38 | PM.PREOP ---
Pre-operative Note Interval Note History & Physical reviewed/Exam performed by Physician: Yes Changes to H&P: No
[2024-11-07] MEDS: CEFAZOLIN 2 GM/100 ML PREMIX 100 ML IV (09:00)
--- NOTE | 2024-11-07 09:15 | SUR.OPER ---
Supine on padded OR bed, head on pillow, arms secured on padded arm boards at <90 degrees abduction, legs uncrossed, safety belt at thigh, tape over blanket over lower legs.
[2024-11-07] MEDS: BUPIVACAINE 0.25% W/ EPI 30 ML VIAL INJ (09:20)
[2024-11-07] MEDS: LIDOCAINE 1% 20 ML INJ (09:21)
--- NOTE | 2024-11-07 09:37 | PM.OP.1 ---
Operative Date/Time/Diagnoses Date of procedure: 11/07/24 Time of procedure: 09:41 Pre-op diagnosis: ventral hernia Post-op diagnosis: same Procedure & Clinicians Procedure: open repair of ventral hernia, greater than 4 cm in size, with mesh Bard 6 cm Ventralex round mesh Same procedure as scheduled: Yes Indications: Ventral hernia Surgeon: Virgilio Ortiz [employer] Supervisor: Edil Venegas Click Yes if Unassisted: No Anesthesia Type: General Operative Notes Findings: Ventral hernia superior to the umbilicus measuring over 4 cm size Closure Type: primary Specimen(s): none sent Prosthetic devices, grafts, tissues, transplants, or devices: Bard 6 cm Ventralex round mesh Estimated Blood Loss (mL): 5 Blood products transfused: none Procedure in detail: Consent was obtained. Patient was brought to the operating room suite. Time-out was performed. Abdomen was shaved prepped and draped in usual fashion. Total of 40 mL of 0.25% Marcaine with epinephrine and 1% lidocaine plain were infiltrated around the incision and performed a field block. Transverse incision was made above the umbilicus and carried down to the anterior rectus fascia. The hernia was dissected free with Metzenbaum scissors to reveal a supra umbilical defect as well as a Qatari cheese defect just through the umbilicus in aggregate measuring greater than 4 cm in craniocaudal dimension. Preperitoneal space was dissected free to accommodate a 6 cm round mesh which was then placed in the preperitoneal space. The anterior fascia was closed primarily over the mesh using interrupted 0 Ethibond sutures. Skin was closed with 4-0 Monocryl and Dermabond. Patient was placed abdominal binder and transferred to PACU in good condition for anticipated same-day discharge. Complications: none Post-operative Condition: stable Disposition: PACU Plan for aftercare: home with spouse
[2024-11-07] MEDS: ePHEDrine 50 MG/ML VIAL 10 MG IV (10:13)
--- NOTE | 2024-11-07 10:48 | SUR.PHASEII ---
1030 Pt taking po fluids without c/o discomfort/difficulty/cough
== END 2024-11-07 11:17 | disposition home or self-care (01) ==
PROVIDERS: PCP Family Medicine; Referring Provider Surgery; Visit Provider Surgery
PROC: (CPT 49593; principal; 2024-11-07 09:15)
DX: K43.9 Ventral hernia without obstruction or gangrene (principal); Z87.891 Personal history of nicotine dependence
CPT/HCPCS: 49593; C1781; J0690; J1885; J2405; J2704; J3010